=== PATIENT | male | born 2000 | race African-American/Black ===

== ENCOUNTER 2023-12-16 16:40 | Emergency (ER) | payer MEDICAID ==
[~2023-12-16] VITALS: Ht 172.7 cm; Wt 90.0 kg
[2023-12-16 16:45] VITALS: TEMP 98.2; O2SAT 100
[2023-12-16 18:30] LABS: BASOPHILS % 0.8 % (0.0-2.0); EOSINOPHILS % 2.9 % (0.0-5.0); HEMATOCRIT. 44.1 % (42.0-52.0); HEMOGLOBIN. 15.2 g/dL (14.0-18.0); LYMPHOCYTES % 31.2 % (20.0-50.0); MEAN CORPUSCULAR HEMOGLOBIN 31.8 pg (28.0-32.0); MEAN CORPUSCULAR HGB CONC 34.5 g/dL (31.0-37.0); MEAN CORPUSCULAR VOLUME 92.3 fL (80.0-94.0); MEAN PLATELET VOLUME 10.5 fl (7.4-10.4); MONOCYTES % 8.6 % (2.0-8.0); NEUTROPHILS % 56.5 % (40.0-76.0); PLATELET 213 x1000/uL (130-400); RED BLOOD CELL COUNT 4.77 mill/uL (4.7-6.1); RED CELL DISTRIBUTION WIDTH 12.7 % (11.6-14.6); WHITE BLOOD COUNT 5.2 x1000/uL (4.5-11.0)
[2023-12-16 18:36] LABS: CHLORIDE 105 mEq/L (98-107); POTASSIUM 3.6 mEq/L (3.5-5.1); SODIUM 142 mEq/L (136-145)
[2023-12-16 18:37] LABS: CARBON DIOXIDE 32 mEq/L (21-32)
[2023-12-16 18:38] LABS: CALCIUM 10.1 mg/dL (8.7-10.4)
[2023-12-16 18:42] LABS: CREATININE 1.2 mg/dL (0.6-1.3); GLUCOSE 63 mg/dL (70-105); UREA NITROGEN BLOOD 11 mg/dL (9-23)
[2023-12-16] MEDS ORDERED: IBUP-2029 MT (20:00)
[2023-12-16] MEDS: IBUPROFEN 600MG TABLET PO ONE (20:07)
[2023-12-16 20:19] VITALS: BP 138/68; PULSE 68; RESP 18
== END 2023-12-16 20:24 | disposition home or self-care (01) ==
LOC: ER 16:40
DX: S62.390A Other fracture of second metacarpal bone, right hand, initial encounter for closed fracture (principal); Z98.890 Other specified postprocedural states; X58.XXXA Exposure to other specified factors, initial encounter; Y93.89 Activity, other specified; Y92.89 Other specified places as the place of occurrence of the external cause; Y99.8 Other external cause status
CPT/HCPCS: 29125; 36415; 73130; 80048; 85025; 99284